=== PATIENT | female | born 1940 | race Caucasian/White ===

== ENCOUNTER → 2017-11-27 | Outpatient (CLI) | payer MEDICARE ==
[~2017-11-27] MED LIST: AMIL5TAB8 PO; CHOL100040 PO; CLON.1 PO; CLON1PAT4 TD; LISI40TA4 PO; LOVA10TA2 PO; METO-391 PO; OMEPRAZOLE DR PO; PIND10TA2 PO; PRAM0.258 PO
== END | disposition home or self-care (01) ==
LOC: SLP 20:05
PROVIDERS: ATTEND Internal Medicine Cardiovascular Disease
DX: G47.33 Obstructive sleep apnea (adult) (pediatric) (principal); I10 Essential (primary) hypertension
CPT/HCPCS: 95810

== ENCOUNTER 2018-02-05 17:19 | Inpatient (IN) | payer MEDICARE ==
[~2018-02-05] VITALS: Ht 152.4 cm; Wt 61.5 kg
[2018-02-05 18:15] VITALS: BP 196/95
[2018-02-05] MEDS ORDERED: OMEPRAZOLE DR PO (18:24)
[2018-02-05] MEDS ORDERED: LISI40TA4 PO (18:24)
[2018-02-05] MEDS ORDERED: CHOL100040 PO (18:24)
[2018-02-05] MEDS ORDERED: METO-391 PO (18:24)
[2018-02-05] MEDS ORDERED: PRAM0.258 PO (18:24)
[2018-02-05] MEDS ORDERED: LOVA10TA2 PO (18:24)
[2018-02-05 18:44] LABS: MEAN CORPUSCULAR HEMOGLOBIN 30.3 pg (27.0-33.0); MEAN CORPUSCULAR HGB CONC 34.8 g/dL (32.0-36.0); PLATELET COUNT (AUTO) 302 K/uL (130-400); RED BLOOD CELL COUNT(AUTO) 4.25 MIL/uL (4.00-5.50); RED CELL DISTRIBUTION WIDTH 12.5 % (11.0-15.5)
[2018-02-05 18:54] LABS: INR 0.97 (0.85-1.15); PARTIAL THROMBOPLASTIN TIME 24.7 SEC (26.3-35.5); PROTHROMBIN TIME 10.2 SEC (9.6-11.6)
[2018-02-05 19:09] LABS: ALBUMIN 3.8 g/dL (3.5-5.0); BILIRUBIN,TOTAL 0.3 mg/dL (0.2-1.0); CREATININE 1.3 mg/dL (0.5-1.5); POTASSIUM 4.1 mmol/L (3.5-5.1); TOTAL PROTEIN, SERUM 7.2 g/dL (6.0-8.3)
[2018-02-05 19:29] VITALS: BP 131/74
[2018-02-05] MEDS ORDERED: ACETAMINOPHEN 325 MG TAB PO PRN (21:15)
[2018-02-05] MEDS ORDERED: ZOLPIDEM TARTRATE 5 MG TAB PO PRN (21:15)
[2018-02-05] MEDS ORDERED: NITROGLYCERIN 0.4 MG SL TAB SL PRN (21:15)
[2018-02-05] MEDS ORDERED: POTASSIUM CHLORIDE 20 MEQ ERTAB PO PRN (21:15)
[2018-02-05] MEDS ORDERED: POTASSIUM CHLORIDE 20MEQ/100ML 100 ML IV PRN (21:15)
[2018-02-05] MEDS ORDERED: LIDOCAINE HCL-MPF 1% 2ML VIAL IVP PRN (21:15)
[2018-02-05] MEDS ORDERED: SODIUM CHLORIDE 0.9% 10 ML VIAL IVP PRN (21:30)
[2018-02-05 22:00] VITALS: BP 210/100
[2018-02-05 23:49] VITALS: BP 190/100
[2018-02-06] VITALS (45 sets, daily range): BP systolic 67–245; BP diastolic 41–107
[2018-02-06] MEDS ORDERED: NICARDIPINE IN NACL, ISO-OSM 200 ML IV ONE ×2 (02:30→20:04)
[2018-02-06 02:54] LABS: APPEARANCE,URINE Clear (CLEAR); BILIRUBIN,URINE Negative (NEGATIVE); COLOR,URINE Yellow (YELLOW); GLUCOSE, URINE (UA) Negative (NEGATIVE); KETONES,URINE Negative (NEGATIVE); LEUKOCYTE ESTERASE ,URINE Moderate (NEGATIVE); NITRATE,URINE Negative (NEGATIVE); OCCULT BLOOD,URINE Negative (NEGATIVE); PROTEIN,URINE Negative (NEGATIVE); UROBILINOGEN,URINE 0.2 mg/dL (0.2-1.0)
[2018-02-06 03:17] LABS: BACTERIA,URINE Rare /HPF (None Seen); RBC,URINE 0-1 /HPF (0-1); SQUAMOUS EPITHELIAL CELL,UR 0-2 /HPF (0-2)
[2018-02-06 04:50] LABS: MEAN CORPUSCULAR HEMOGLOBIN 31.7 pg (27.0-33.0); MEAN CORPUSCULAR HGB CONC 35.8 g/dL (32.0-36.0); MEAN CORPUSCULAR VOLUME 88.3 fL (79-99); PLATELET COUNT (AUTO) 280 K/uL (130-400); RED CELL DISTRIBUTION WIDTH 12.7 % (11.0-15.5); WHITE BLOOD COUNT (AUTO) 6.5 K/uL (4.8-10.8)
[2018-02-06 05:13] LABS: POTASSIUM 3.4 mmol/L (3.5-5.1); THYROID STIMULATING HORMONE 2.5 uIU/mL (0.36-3.74)
[2018-02-06] MEDS ORDERED: CEFTRIAXONE 1GM/D5W 50ML 50 ML IV SCH (06:45)
[2018-02-06] MEDS ORDERED: CEFTRIAXONE SODIUM 1 GM IVP SCH ×2 (07:00→11:30)
[2018-02-06] MEDS: VITAMIN D3 1000 UNIT PO SCH (12:52)
[2018-02-06] MEDS: PRAMIPEXOLE DI-HCL 0.25 MG TABLET PO SCH ×2 (12:52→21:50)
[2018-02-06] MEDS: FAMOTIDINE 20MG TAB 20 MG TAB PO SCH (12:54)
[2018-02-06] MEDS: LOVASTATIN 10 MG PO SCH (12:54)
[2018-02-06] MEDS ORDERED: SODIUM CHLORIDE 0.9% 1000ML 1,000 ML IV ONE (13:11)
[2018-02-06] MEDS: LISINOPRIL 40 MG TABLET PO SCH (16:13)
[2018-02-06] MEDS ORDERED: PRAMIPEXOLE DI-HCL 0.25 MG TABLET PO SCH (21:00)
[2018-02-07] VITALS (24 sets, daily range): BP systolic 109–184; BP diastolic 63–102
[2018-02-07 04:03] LABS: CREATININE 0.9 mg/dL (0.5-1.5); POTASSIUM 3.8 mmol/L (3.5-5.1)
[2018-02-07] MEDS ORDERED: NICARDIPINE IN NACL, ISO-OSM 200 ML IV ONE ×2 (06:58→22:27)
[2018-02-07] MEDS: VITAMIN D3 1000 UNIT PO SCH (08:31)
[2018-02-07] MEDS: LOVASTATIN 10 MG PO SCH (08:32)
[2018-02-07] MEDS: PRAMIPEXOLE DI-HCL 0.25 MG TABLET PO SCH ×3 (08:32→18:34)
[2018-02-07] MEDS: LISINOPRIL 40 MG TABLET PO SCH (08:33)
[2018-02-07] MEDS: CEFTRIAXONE SODIUM 1 GM IVP SCH (08:33)
[2018-02-07] MEDS: FAMOTIDINE 20MG TAB 20 MG TAB PO SCH (08:33)
[2018-02-07] MEDS: ENOXAPARIN SODIUM 40 MG/0.4 ML SYRINGE SQ SCH (08:35)
[2018-02-07] MEDS: ACETAMINOPHEN 325 MG TAB PO PRN (22:30)
[2018-02-07] MEDS: NICARDIPINE HCL 100 MG in SODIUM CHLORIDE 0.9% 60 ML IV SCH (22:35)
[2018-02-08] VITALS (27 sets, daily range): BP systolic 110–208; BP diastolic 53–98
[2018-02-08 03:49] LABS: INR 0.96 (0.85-1.15); PROTHROMBIN TIME 10.1 SEC (9.6-11.6)
[2018-02-08 03:51] LABS: CREATININE 0.8 mg/dL (0.5-1.5); POTASSIUM 3.5 mmol/L (3.5-5.1)
[2018-02-08] MEDS: PRAMIPEXOLE DI-HCL 0.25 MG TABLET PO SCH ×3 (08:04→21:02)
[2018-02-08] MEDS: LISINOPRIL 40 MG TABLET PO SCH (08:04)
[2018-02-08] MEDS: FAMOTIDINE 20MG TAB 20 MG TAB PO SCH (08:04)
[2018-02-08] MEDS: CEFTRIAXONE SODIUM 1 GM IVP SCH (08:05)
[2018-02-08] MEDS: VITAMIN D3 1000 UNIT PO SCH (08:07)
[2018-02-08] MEDS: ENOXAPARIN SODIUM 40 MG/0.4 ML SYRINGE SQ SCH (08:07)
[2018-02-08] MEDS: LOVASTATIN 10 MG PO SCH (08:08)
[2018-02-08] MEDS: POTASSIUM CHLORIDE 10% ELIXIR 20 MEQ/15 ML UDCUP PO PRN ×2 (08:18→13:11)
[2018-02-08] MEDS ORDERED: NICARDIPINE IN NACL, ISO-OSM 200 ML IV ONE (15:37)
[2018-02-08] MEDS: ACETAMINOPHEN 325 MG TAB PO PRN (21:03)
[2018-02-08] MEDS: ONDANSETRON HCL MDV 20ML 2 MG/ML VIAL IV PRN (22:26)
[2018-02-09] VITALS (24 sets, daily range): BP systolic 125–206; BP diastolic 62–103
[2018-02-09] MEDS ORDERED: NICARDIPINE IN NACL, ISO-OSM 200 ML IV ONE ×2 (00:31→23:03)
[2018-02-09] MEDS: NICARDIPINE HCL 100 MG in SODIUM CHLORIDE 0.9% 60 ML IV SCH (00:34)
[2018-02-09 04:31] LABS: HEMATOCRIT 38.1 % (36-48); MEAN CORPUSCULAR HEMOGLOBIN 30.5 pg (27.0-33.0); MEAN CORPUSCULAR HGB CONC 34.4 g/dL (32.0-36.0); MEAN CORPUSCULAR VOLUME 88.7 fL (79-99); PLATELET COUNT (AUTO) 264 K/uL (130-400); RED BLOOD CELL COUNT(AUTO) 4.29 MIL/uL (4.00-5.50); RED CELL DISTRIBUTION WIDTH 12.9 % (11.0-15.5)
[2018-02-09 05:01] LABS: CREATININE 0.9 mg/dL (0.5-1.5); POTASSIUM 4.1 mmol/L (3.5-5.1)
[2018-02-09] MEDS: CEFTRIAXONE SODIUM 1 GM IVP SCH (08:55)
[2018-02-09] MEDS: ENOXAPARIN SODIUM 40 MG/0.4 ML SYRINGE SQ SCH (09:00)
[2018-02-09] MEDS ORDERED: ISOVUE-300 100 ML VIAL IV ONE (09:50)
[2018-02-09] MEDS ORDERED: LIDOCAINE HCL-MPF 2% 5ML VIAL ONE (09:50)
[2018-02-09] MEDS ORDERED: NITROGLYCERIN 5 MG/ML 10 ML VIAL IV ONE (09:57)
[2018-02-09] MEDS ORDERED: HEPARIN SODIUM 1000UNIT/ML 10ML VIAL ONE (11:02)
[2018-02-09] MEDS ORDERED: SODIUM CHLORIDE 0.9% 1000ML 1,000 ML IV SCH (11:18)
[2018-02-09] MEDS: LISINOPRIL 40 MG TABLET PO SCH (11:47)
[2018-02-09] MEDS: PRAMIPEXOLE DI-HCL 0.25 MG TABLET PO SCH ×3 (11:47→20:02)
[2018-02-09] MEDS: FAMOTIDINE 20MG TAB 20 MG TAB PO SCH (11:48)
[2018-02-09] MEDS: LOVASTATIN 10 MG PO SCH (11:49)
[2018-02-09] MEDS: VITAMIN D3 1000 UNIT PO SCH (11:50)
[2018-02-09] MEDS: LABETALOL HCL 100 MG TABLET PO SCH ×2 (15:21→20:01)
[2018-02-10] VITALS (23 sets, daily range): BP systolic 78–170; BP diastolic 41–83
[2018-02-10 04:24] LABS: HEMATOCRIT 35.4 % (36-48); MEAN CORPUSCULAR HEMOGLOBIN 30.6 pg (27.0-33.0); MEAN CORPUSCULAR HGB CONC 34.7 g/dL (32.0-36.0); MEAN CORPUSCULAR VOLUME 88.3 fL (79-99); PLATELET COUNT (AUTO) 256 K/uL (130-400); RED CELL DISTRIBUTION WIDTH 12.8 % (11.0-15.5); WHITE BLOOD COUNT (AUTO) 8.3 K/uL (4.8-10.8)
[2018-02-10 04:35] LABS: CREATININE 0.9 mg/dL (0.5-1.5); POTASSIUM 4.2 mmol/L (3.5-5.1)
[2018-02-10] MEDS ORDERED: AMLODIPINE BESYLATE 5 MG TAB PO SCH (09:00)
[2018-02-10] MEDS ORDERED: METOPROLOL TARTRATE 25 MG TAB PO SCH (09:00)
[2018-02-10] MEDS: CEFTRIAXONE SODIUM 1 GM IVP SCH (09:11)
[2018-02-10] MEDS: VITAMIN D3 1000 UNIT PO SCH (09:13)
[2018-02-10] MEDS: FAMOTIDINE 20MG TAB 20 MG TAB PO SCH (09:13)
[2018-02-10] MEDS: PRAMIPEXOLE DI-HCL 0.25 MG TABLET PO SCH ×3 (09:14→17:39)
[2018-02-10] MEDS: ENOXAPARIN SODIUM 40 MG/0.4 ML SYRINGE SQ SCH (09:15)
[2018-02-10] MEDS ORDERED: PRAM0.258 PO (14:54)
[2018-02-10] MEDS ORDERED: PRAMIPEXOLE DI-HCL 0.25 MG TABLET PO SCH (17:00)
[2018-02-10] MEDS: PINDOLOL 5 MG TAB PO SCH (17:39)
[2018-02-10] MEDS: LISINOPRIL 20 MG TABLET PO SCH (17:39)
[2018-02-10] MEDS: **HM** LOVASTATIN 10MG PO SCH (17:40)
[2018-02-10] MEDS: ONDANSETRON HCL MDV 20ML 2 MG/ML VIAL IV PRN (20:04)
[2018-02-10] MEDS ORDERED: PINDOLOL 5 MG TAB PO SCH (21:00)
[2018-02-10] MEDS ORDERED: LISINOPRIL 20 MG TABLET PO SCH (21:00)
[2018-02-11] VITALS (8 sets, daily range): BP systolic 125–202; BP diastolic 58–110
[2018-02-11] MEDS: LISINOPRIL 20 MG TABLET PO SCH ×2 (05:00→17:04)
[2018-02-11] MEDS: PINDOLOL 5 MG TAB PO SCH ×2 (05:00→17:04)
[2018-02-11] MEDS: VITAMIN D3 1000 UNIT PO SCH (09:00)
[2018-02-11] MEDS: FAMOTIDINE 20MG TAB 20 MG TAB PO SCH (10:58)
[2018-02-11] MEDS: CEFTRIAXONE SODIUM 1 GM IVP SCH (10:58)
[2018-02-11] MEDS: ENOXAPARIN SODIUM 40 MG/0.4 ML SYRINGE SQ SCH (10:59)
[2018-02-11] MEDS: **HM** LOVASTATIN 10MG PO SCH (17:00)
[2018-02-11] MEDS: PRAMIPEXOLE DI-HCL 0.25 MG TABLET PO SCH (17:04)
[2018-02-12] VITALS (8 sets, daily range): BP systolic 93–187; BP diastolic 48–95
[2018-02-12] MEDS: LISINOPRIL 20 MG TABLET PO SCH ×2 (05:10→17:04)
[2018-02-12] MEDS ORDERED: PINDOLOL 5 MG TAB PO SCH ×3 (06:00→21:00)
[2018-02-12] MEDS: FAMOTIDINE 20MG TAB 20 MG TAB PO SCH (08:15)
[2018-02-12] MEDS: ENOXAPARIN SODIUM 40 MG/0.4 ML SYRINGE SQ SCH (08:19)
[2018-02-12] MEDS: VITAMIN D3 1000 UNIT PO SCH (08:23)
[2018-02-12] MEDS ORDERED: CLONIDINE HCL 0.1 MG TABLET PO SCH (12:00)
[2018-02-12] MEDS ORDERED: PHARMACY COMMUNICATION MISC SCH (14:15)
[2018-02-12] MEDS: PINDOLOL 5 MG TAB PO SCH (17:05)
[2018-02-12] MEDS: **HM** LOVASTATIN 10MG PO SCH (17:07)
[2018-02-12] MEDS: PRAMIPEXOLE DI-HCL 0.25 MG TABLET PO SCH (17:07)
[2018-02-13 03:25] VITALS: BP 148/82
[2018-02-13] MEDS ORDERED: CLONIDINE HCL 0.1 MG TABLET PO SCH ×2 (06:00→09:00)
[2018-02-13] MEDS: PINDOLOL 5 MG TAB PO SCH ×2 (06:10→17:03)
[2018-02-13] MEDS: LISINOPRIL 20 MG TABLET PO SCH ×2 (06:10→17:04)
[2018-02-13 07:00] VITALS: BP 109/63
[2018-02-13] MEDS: ENOXAPARIN SODIUM 40 MG/0.4 ML SYRINGE SQ SCH (07:51)
[2018-02-13] MEDS: FAMOTIDINE 20MG TAB 20 MG TAB PO SCH (07:51)
[2018-02-13] MEDS: VITAMIN D3 1000 UNIT PO SCH (07:52)
[2018-02-13 11:00] VITALS: BP 121/55
[2018-02-13 16:00] VITALS: BP 162/77
[2018-02-13] MEDS: PRAMIPEXOLE DI-HCL 0.25 MG TABLET PO SCH (17:03)
[2018-02-13] MEDS: **HM** LOVASTATIN 10MG PO SCH (17:06)
[2018-02-13 19:49] VITALS: BP 184/79
[2018-02-13] MEDS ORDERED: CLONIDINE 0.1 MG/ 24 HR PATCH TD SCH (21:00)
[2018-02-13 23:19] VITALS: BP 141/93
[2018-02-14] VITALS (10 sets, daily range): BP systolic 90–214; BP diastolic 54–116
[2018-02-14] MEDS: PINDOLOL 5 MG TAB PO SCH ×3 (06:13→17:10)
[2018-02-14] MEDS: LISINOPRIL 20 MG TABLET PO SCH ×2 (06:14→17:10)
[2018-02-14] MEDS: ENOXAPARIN SODIUM 40 MG/0.4 ML SYRINGE SQ SCH (07:45)
[2018-02-14] MEDS: FAMOTIDINE 20MG TAB 20 MG TAB PO SCH (07:45)
[2018-02-14] MEDS: VITAMIN D3 1000 UNIT PO SCH (07:48)
[2018-02-14] MEDS ORDERED: CLONIDINE 0.2 MG/ 24 HR PATCH TD SCH (08:30)
[2018-02-14] MEDS ORDERED: PINDOLOL 5 MG TAB PO SCH (09:45)
[2018-02-14] MEDS: AMILORIDE HCL 5 MG TABLET PO SCH (09:55)
[2018-02-14] MEDS: ACETAMINOPHEN 325 MG TAB PO PRN (14:09)
[2018-02-14] MEDS: **HM** LOVASTATIN 10MG PO SCH (17:11)
[2018-02-14] MEDS: PRAMIPEXOLE DI-HCL 0.25 MG TABLET PO SCH (17:11)
[2018-02-15] VITALS (7 sets, daily range): BP systolic 106–217; BP diastolic 50–106
[2018-02-15 04:58] LABS: POTASSIUM 4.3 mmol/L (3.5-5.1)
[2018-02-15] MEDS: PINDOLOL 5 MG TAB PO SCH ×2 (06:00→17:29)
[2018-02-15] MEDS: LISINOPRIL 20 MG TABLET PO SCH ×2 (06:00→17:30)
[2018-02-15] MEDS: AMILORIDE HCL 5 MG TABLET PO SCH (09:42)
[2018-02-15] MEDS: ENOXAPARIN SODIUM 40 MG/0.4 ML SYRINGE SQ SCH (09:43)
[2018-02-15] MEDS: FAMOTIDINE 20MG TAB 20 MG TAB PO SCH (09:43)
[2018-02-15] MEDS: VITAMIN D3 1000 UNIT PO SCH (09:44)
[2018-02-15] MEDS: ACETAMINOPHEN 325 MG TAB PO PRN (09:57)
[2018-02-15] MEDS: **HM** LOVASTATIN 10MG PO SCH (17:00)
[2018-02-15] MEDS: PRAMIPEXOLE DI-HCL 0.25 MG TABLET PO SCH (17:29)
[2018-02-16 03:21] VITALS: BP 185/70
[2018-02-16] MEDS: PINDOLOL 5 MG TAB PO SCH ×2 (05:46→17:01)
[2018-02-16] MEDS: LISINOPRIL 20 MG TABLET PO SCH ×2 (05:47→16:19)
[2018-02-16 08:00] VITALS: BP 154/110
[2018-02-16] MEDS: AMILORIDE HCL 5 MG TABLET PO SCH (09:31)
[2018-02-16] MEDS: FAMOTIDINE 20MG TAB 20 MG TAB PO SCH (09:31)
[2018-02-16] MEDS: ENOXAPARIN SODIUM 40 MG/0.4 ML SYRINGE SQ SCH (09:31)
[2018-02-16] MEDS: VITAMIN D3 1000 UNIT PO SCH (09:40)
[2018-02-16 11:50] VITALS: BP 96/53
[2018-02-16] MEDS ORDERED: CLONIDINE 0.2 MG/ 24 HR PATCH TD SCH (15:45)
[2018-02-16] MEDS: PRAMIPEXOLE DI-HCL 0.25 MG TABLET PO SCH (16:19)
[2018-02-16] MEDS: **HM** LOVASTATIN 10MG PO SCH (16:19)
[2018-02-16 16:21] VITALS: BP 123/61
[2018-02-16 19:21] VITALS: BP 164/86
[2018-02-16 23:23] VITALS: BP 198/91
[2018-02-16] MEDS ORDERED: HYDRALAZINE HCL 20 MG/ML VIAL IV PRN (23:45)
[2018-02-16] MEDS ORDERED: HYDRALAZINE HCL 20 MG/ML VIAL ONE (23:48)
[2018-02-17] VITALS (7 sets, daily range): BP systolic 121–149; BP diastolic 53–86
[2018-02-17] MEDS: ACETAMINOPHEN 325 MG TAB PO PRN ×2 (01:24→13:12)
[2018-02-17] MEDS: PINDOLOL 5 MG TAB PO SCH ×2 (05:57→18:46)
[2018-02-17] MEDS: LISINOPRIL 20 MG TABLET PO SCH ×2 (05:57→18:46)
[2018-02-17] MEDS: CLONIDINE HCL 0.1 MG TABLET PO SCH ×2 (10:22→19:32)
[2018-02-17] MEDS: FAMOTIDINE 20MG TAB 20 MG TAB PO SCH (10:22)
[2018-02-17] MEDS: AMILORIDE HCL 5 MG TABLET PO SCH (10:23)
[2018-02-17] MEDS: ENOXAPARIN SODIUM 40 MG/0.4 ML SYRINGE SQ SCH (10:23)
[2018-02-17] MEDS: VITAMIN D3 1000 UNIT PO SCH (10:23)
[2018-02-17] MEDS: **HM** LOVASTATIN 10MG PO SCH (18:49)
[2018-02-17] MEDS: ONDANSETRON HCL MDV 20ML 2 MG/ML VIAL IV PRN (19:31)
[2018-02-17] MEDS: PRAMIPEXOLE DI-HCL 0.25 MG TABLET PO SCH (19:32)
[2018-02-18 03:18] VITALS: BP 114/69
[2018-02-18] MEDS: PINDOLOL 5 MG TAB PO SCH (05:39)
[2018-02-18] MEDS: LISINOPRIL 20 MG TABLET PO SCH (05:39)
[2018-02-18 07:48] VITALS: BP 105/53
[2018-02-18] MEDS: FAMOTIDINE 20MG TAB 20 MG TAB PO SCH (07:56)
[2018-02-18] MEDS: CLONIDINE HCL 0.1 MG TABLET PO SCH (07:57)
[2018-02-18] MEDS: VITAMIN D3 1000 UNIT PO SCH (07:57)
[2018-02-18] MEDS: ENOXAPARIN SODIUM 40 MG/0.4 ML SYRINGE SQ SCH (07:59)
[2018-02-18] MEDS ORDERED: AMIL5TAB8 PO (08:49)
[2018-02-18] MEDS ORDERED: CLON1PAT4 TD (08:49)
[2018-02-18] MEDS ORDERED: CLON.1 PO (08:49)
[2018-02-18] MEDS ORDERED: LISI40TA4 PO (08:49)
[2018-02-18] MEDS ORDERED: PIND10TA2 PO (08:50)
[2018-02-18] MEDS: AMILORIDE HCL 5 MG TABLET PO SCH (08:58)
[2018-02-18 11:21] VITALS: BP 101/57
[2018-02-21] MEDS ORDERED: CLONIDINE 0.2 MG/ 24 HR PATCH TD SCH (17:00)
== END 2018-02-18 13:05 | disposition home or self-care (01) | DRG 690 ==
LOC: EDH 17:19 → 2DH 17:50 → 2BH 02-06 02:30 → 2CH 02-06 11:45 → 2AH 02-10 17:58
PROVIDERS: ADMIT Internal Medicine; ATTEND Internal Medicine
PROC: 5A09357 Assistance with Respiratory Ventilation, Less than 24 Consecutive Hours, Continuous Positive Airway Pressure (ICD-10-PCS; 2018-02-05)
PROC: 5A09357 Assistance with Respiratory Ventilation, Less than 24 Consecutive Hours, Continuous Positive Airway Pressure (ICD-10-PCS; 2018-02-08)
PROC: B4181ZZ Fluoroscopy of Bilateral Renal Arteries using Low Osmolar Contrast (ICD-10-PCS; principal; 2018-02-09)
PROC: 5A09357 Assistance with Respiratory Ventilation, Less than 24 Consecutive Hours, Continuous Positive Airway Pressure (ICD-10-PCS; 2018-02-09)
PROC: 5A09357 Assistance with Respiratory Ventilation, Less than 24 Consecutive Hours, Continuous Positive Airway Pressure (ICD-10-PCS; 2018-02-16)
PROC: 5A09357 Assistance with Respiratory Ventilation, Less than 24 Consecutive Hours, Continuous Positive Airway Pressure (ICD-10-PCS; 2018-02-17)
PROC: 5A09357 Assistance with Respiratory Ventilation, Less than 24 Consecutive Hours, Continuous Positive Airway Pressure (ICD-10-PCS; 2018-02-18)
DX: N39.0 Urinary tract infection, site not specified (principal); Z99.81 Dependence on supplemental oxygen; E87.1 Hypo-osmolality and hyponatremia; I10 Essential (primary) hypertension; E78.5 Hyperlipidemia, unspecified; G56.01 Carpal tunnel syndrome, right upper limb; G25.81 Restless legs syndrome; G47.33 Obstructive sleep apnea (adult) (pediatric); Z79.899 Other long term (current) drug therapy; Z85.41 Personal history of malignant neoplasm of cervix uteri; Z90.710 Acquired absence of both cervix and uterus
CPT/HCPCS: 36252; 36415; 71045; 76770; 80048; 80053; 81001; 84443; 85027; 85610; 85730; 93005; 93306; 93975; A4218; C1760; C1887; C1894; J0360; J0696; J1644; J1650; J3480; J3490; J7030; Q9967

== ENCOUNTER 2018-03-02 18:17 | Emergency (ER) | payer MEDICARE ==
[~2018-03-02 18:17] MED LIST changes: -METO-391 PO
[2018-03-02 18:51] LABS: BASOPHILS % (AUTO) 1.1 % (0.0-5.0); EOSINOPHILS % (AUTO) 9.1 % (0.0-8.0); HEMATOCRIT 38.5 % (36-48); MEAN CORPUSCULAR HEMOGLOBIN 29.7 pg (27.0-33.0); MEAN CORPUSCULAR HGB CONC 34.1 g/dL (32.0-36.0); MONOCYTES % (AUTO) 13.4 % (3.0-13.0); NEUTROPHILS % (AUTO) 59.4 % (40.0-77.0); PLATELET COUNT (AUTO) 262 K/uL (130-400); RED BLOOD CELL COUNT(AUTO) 4.42 MIL/uL (4.00-5.50); RED CELL DISTRIBUTION WIDTH 12.3 % (11.0-15.5); WHITE BLOOD COUNT (AUTO) 5.9 K/uL (4.8-10.8)
[2018-03-02 19:02] LABS: INR 0.95 (0.85-1.15)
[2018-03-02 19:03] LABS: CREATININE 1.2 mg/dL (0.5-1.5); POTASSIUM 4.8 mmol/L (3.5-5.1)
[2018-03-02 19:38] LABS: BILIRUBIN,TOTAL 0.2 mg/dL (0.2-1.0); CREATINE KINASE MB 1.6 ng/mL (0.5-3.6); TOTAL PROTEIN, SERUM 7.6 g/dL (6.0-8.3)
== END 2018-03-02 20:08 | disposition home or self-care (01) ==
LOC: EDH 18:17
DX: I10 Essential (primary) hypertension (principal); Z03.89 Encounter for observation for other suspected diseases and conditions ruled out; R79.1 Abnormal coagulation profile; G56.00 Carpal tunnel syndrome, unspecified upper limb; E78.5 Hyperlipidemia, unspecified; Z85.41 Personal history of malignant neoplasm of cervix uteri
CPT/HCPCS: 36415; 71045; 80053; 82553; 84484; 85025; 85610; 85730; 93005

== ENCOUNTER → 2022-11-22 | Outpatient (CLI) | payer MEDICARE ==
[~2022-11-22] MED LIST changes: -CLON.1 PO; +CLON0.1T2 PO; -LISI40TA4 PO; +LISI40TA9 PO
== END | disposition home or self-care (01) ==
LOC: LAB 13:59
PROVIDERS: ATTEND Internal Medicine Cardiovascular Disease
DX: I10 Essential (primary) hypertension (principal)
CPT/HCPCS: 36415; 83880

== ENCOUNTER → 2023-01-09 | Outpatient (CLI) | payer MEDICARE ==
[2023-01-09 13:12] LABS: POTASSIUM 4.7 mmol/L (3.5-5.1)
== END | disposition home or self-care (01) ==
LOC: LAB 10:01
PROVIDERS: ATTEND Internal Medicine Cardiovascular Disease
DX: I10 Essential (primary) hypertension (principal); I87.2 Venous insufficiency (chronic) (peripheral); I95.1 Orthostatic hypotension; R60.9 Edema, unspecified
CPT/HCPCS: 36415; 80048

== ENCOUNTER → 2023-02-03 | Outpatient (CLI) | payer MEDICARE ==
[2023-02-03 15:54] LABS: POTASSIUM 4.6 mmol/L (3.5-5.1)
== END | disposition home or self-care (01) ==
LOC: LAB 10:03
PROVIDERS: ATTEND Internal Medicine Cardiovascular Disease
DX: I95.1 Orthostatic hypotension (principal)
CPT/HCPCS: 36415; 80048

== ENCOUNTER → 2023-02-17 | Outpatient (CLI) | payer MEDICARE ==
[2023-02-17 14:04] LABS: POTASSIUM 4.7 mmol/L (3.5-5.1)
== END | disposition home or self-care (01) ==
LOC: LAB 10:08
PROVIDERS: ATTEND Internal Medicine Cardiovascular Disease
DX: E87.1 Hypo-osmolality and hyponatremia (principal)
CPT/HCPCS: 36415; 80048

== ENCOUNTER → 2023-03-08 | Outpatient (CLI) | payer MEDICARE | END | disposition home or self-care (01) | LOC: RAH 08:58 | PROVIDERS: ATTEND Nurse Practitioner | DX: M75.101 Unspecified rotator cuff tear or rupture of right shoulder, not specified as traumatic (principal); M75.01 Adhesive capsulitis of right shoulder; M19.011 Primary osteoarthritis, right shoulder; M25.411 Effusion, right shoulder | CPT/HCPCS: 73221 ==

== ENCOUNTER → 2023-03-21 | Outpatient (CLI) | payer MEDICARE ==
[2023-03-21 12:42] LABS: CREATININE 0.9 mg/dL (0.5-1.5); POTASSIUM 4.8 mmol/L (3.5-5.1)
== END | disposition home or self-care (01) ==
LOC: LAB 09:52
PROVIDERS: ATTEND Internal Medicine Cardiovascular Disease
DX: I95.1 Orthostatic hypotension (principal); E87.1 Hypo-osmolality and hyponatremia
CPT/HCPCS: 36415; 80048; 83880

== ENCOUNTER 2023-11-22 12:30 | Emergency (ER) | payer MEDICARE ==
[~2023-11-22] VITALS: Ht 152.4 cm; Wt 48.1 kg
[~2023-11-22 12:30] MED LIST changes: +AEC81 PO; -AMIL5TAB8 PO; +AMOX1TAB15 PO; -CHOL100040 PO; -CLON0.1T2 PO; -CLON1PAT4 TD; +FURO20TA4 PO; -LISI40TA9 PO; +METO-408 PO; +PRED20TA3 PO; +VALS80TA30 PO; +prevagen
[2023-11-22] MEDS ORDERED: ASPIRIN 325MG TAB PO ONE (14:30)
[2023-11-22 14:44] LABS: BASOPHILS # (AUTO) 0.02 K/uL (0.00-0.20); BASOPHILS % (AUTO) 0.2 % (0.0-5.0); EOSINOPHILS # (AUTO) 0.04 K/uL (0.00-0.70); EOSINOPHILS % (AUTO) 0.3 % (0.0-8.0); HEMATOCRIT 39.2 % (36-48); IMMATURE GRANULOCYTE ABSOLUTE 0.24 K/uL (0-1); LYMPHOCYTES # (AUTO) 0.7 K/uL (1.0-4.8); LYMPHOCYTES % (AUTO) 6.4 % (21.0-51.0); MEAN CORPUSCULAR HEMOGLOBIN 25.1 pg (27.0-33.0); MEAN CORPUSCULAR HGB CONC 30.4 g/dL (32.0-36.0); MEAN CORPUSCULAR VOLUME 82.5 fL (79-99); MONOCYTES # (AUTO) 0.4 K/uL (0.1-1.0); MONOCYTES % (AUTO) 3.1 % (3.0-13.0); NEUTROPHILS # (AUTO) 10.3 K/uL (1.8-7.7); NEUTROPHILS % (AUTO) 87.9 % (40.0-77.0); PLATELET COUNT (AUTO) 490 K/uL (130-400); RED BLOOD CELL COUNT(AUTO) 4.75 MIL/uL (4.00-5.50); WHITE BLOOD COUNT (AUTO) 11.7 K/uL (4.8-10.8)
[2023-11-22 14:53] LABS: CREATININE 1.3 mg/dL (0.5-1.5); POTASSIUM 5.3 mmol/L (3.5-5.1)
[2023-11-22 14:57] LABS: ALBUMIN 3.3 g/dL (3.5-5.0); BILIRUBIN,TOTAL 0.5 mg/dL (0.2-1.0); TOTAL PROTEIN, SERUM 7.4 g/dL (6.0-8.3)
[2023-11-22] MEDS ORDERED: IOHEXOL-350 75 ML VIAL IV ONE ×2 (15:03→15:22)
[2023-11-22] MEDS ORDERED: LACTATED RINGERS 1000ML 1,000 ML IV ONE (16:30)
[2023-11-22 19:08] LABS: ADD UA MICROSCOPIC YES; APPEARANCE,URINE CLEAR (CLEAR); BILIRUBIN,URINE NEGATIVE (NEGATIVE); COLOR,URINE LIGHT-YELLOW (YELLOW); GLUCOSE, URINE (UA) NEGATIVE (NEGATIVE); KETONES,URINE NEGATIVE (NEGATIVE); LEUKOCYTE ESTERASE ,URINE NEGATIVE Leu/uL (NEGATIVE); NITRATE,URINE NEGATIVE (NEGATIVE); OCCULT BLOOD,URINE NEGATIVE (NEGATIVE); PH,URINE 7.5 (5.0-8.0); PROTEIN,URINE NEGATIVE (NEGATIVE); UROBILINOGEN,URINE 0.2 mg/dL (0.2-1.0)
[2023-11-22 19:15] LABS: AMPHET/METH SCREEN,URINE NEGATIVE (NEGATIVE); BARBITURATE SCREEN, URINE NEGATIVE (NEGATIVE); BENZODIAZEPINES SCREEN,URINE NEGATIVE (NEGATIVE); CANNABINOID SCREEN,URINE NEGATIVE (NEGATIVE); COCAINE SCREEN,URINE NEGATIVE (NEGATIVE); OPIATE SCREEN,URINE NEGATIVE (NEGATIVE); PHENCYCLIDINE SCREEN,URINE NEGATIVE (NEGATIVE)
[2023-11-22 19:18] LABS: BACTERIA,URINE RARE /HPF (None Seen); MUCUS,URINE RARE LPF (None Seen); SQUAMOUS EPITHELIAL CELL,UR RARE /HPF (0-2); WBC,URINE 0-1 /HPF (0-1)
[2023-11-22 21:27] VITALS: BP 108/56; PULSE 69; RESP 16; O2SAT 96
== END 2023-11-22 21:27 | disposition short-term general hospital (02) ==
LOC: EDH 12:30
DX: R47.81 Slurred speech (principal); R41.82 Altered mental status, unspecified; J44.9 Chronic obstructive pulmonary disease, unspecified; E78.00 Pure hypercholesterolemia, unspecified; I11.0 Hypertensive heart disease with heart failure; I50.9 Heart failure, unspecified; K21.9 Gastro-esophageal reflux disease without esophagitis; Z79.52 Long term (current) use of systemic steroids; Z79.82 Long term (current) use of aspirin; Z79.899 Other long term (current) drug therapy; Z90.49 Acquired absence of other specified parts of digestive tract
CPT/HCPCS: 99285; 70450; 96360; 84484; 80053; 80305; 85025; 82948; 81001; 36415; 70496; 70498; 93005; J7120; Q9967 ×2

== ENCOUNTER → 2024-12-09 | Outpatient (CLI) | payer MEDICARE ==
[~2024-12-09] MED LIST changes: -AMOX1TAB15 PO; +OSEL75 PO; -PRAM0.258 PO; +PRAM1TAB7 PO; -PRED20TA3 PO
--- NOTE | 2024-12-09 14:25 | HMCIMG ---
CT UPPER EXT W/O CONTRAST HISTORY: Primary osteoarthritis COMPARISON: None TECHNIQUE: Multiple sequential axial images of the right shoulder were obtained including post processing sagittal and coronal reconstruction images. Patient was not given contrast through intravenous route. FINDINGS: There is superior subluxation of right shoulder. Hill-Sachs deformity is seen. There are findings suspicious for rotator cuff tendon tear. Irregularity is seen involving the medial portion of the right humeral head and superior aspect of the bony glenoid suggestive of chronic dislocation with degenerative changes. No acute displaced fracture is seen. IMPRESSION: 1. Superior subluxation of right shoulder with Hill-Sachs deformity. Bony irregularity is seen involving the medial portion of the right humeral head and superior portion of the bony glenoid at the articular surface. CT was performed with one or more following dose reduction techniques: automated exposure control, adjustment of the mA and kv according to patient's size, or use of a iterative reconstruction technique.
== END | disposition home or self-care (01) ==
LOC: RAH 13:36
PROVIDERS: ATTEND Student in an Organized Health Care Education/Training Program
DX: S43.001A Unspecified subluxation of right shoulder joint, initial encounter (principal); S42.291A Other displaced fracture of upper end of right humerus, initial encounter for closed fracture; M19.011 Primary osteoarthritis, right shoulder; X58.XXXA Exposure to other specified factors, initial encounter; Y93.89 Activity, other specified; Y92.89 Other specified places as the place of occurrence of the external cause; Y99.8 Other external cause status
CPT/HCPCS: 73200

== ENCOUNTER 2025-01-20 05:44 | Observation (INO) | payer MEDICARE ==
[2025-01-14 15:14] LABS: BASOPHILS # (AUTO) 0.09 K/uL (0.00-0.20); EOSINOPHILS # (AUTO) 0.55 K/uL (0.00-0.70); EOSINOPHILS % (AUTO) 6.1 % (0.0-8.0); HEMATOCRIT 31.9 % (36-48); IMMATURE GRANULOCYTE ABSOLUTE 0.07 K/uL (0-1); LYMPHOCYTES # (AUTO) 1.5 K/uL (1.0-4.8); LYMPHOCYTES % (AUTO) 16.3 % (21.0-51.0); MEAN CORPUSCULAR HEMOGLOBIN 29.9 pg (27.0-33.0); MEAN CORPUSCULAR VOLUME 93.5 fL (79-99); MONOCYTES # (AUTO) 0.8 K/uL (0.1-1.0); MONOCYTES % (AUTO) 8.7 % (3.0-13.0); NEUTROPHILS % (AUTO) 67.1 % (40.0-77.0); PLATELET COUNT (AUTO) 337 K/uL (130-400); RED BLOOD CELL COUNT(AUTO) 3.41 MIL/uL (4.00-5.50); RED CELL DISTRIBUTION WIDTH 14.6 % (11.0-15.5)
[2025-01-14 15:22] LABS: INR 1.02 (0.85-1.15); PROTHROMBIN TIME 10.8 SEC (9.6-11.6)
[2025-01-14 15:24] LABS: ALBUMIN 3.6 g/dL (3.5-5.0); CREATININE 1.7 mg/dL (0.5-1.0); PARTIAL THROMBOPLASTIN TIME 27.6 SEC (26.3-35.5); POTASSIUM 5.2 mmol/L (3.5-5.1)
[2025-01-14 15:51] VITALS: BP 158/76; PULSE 101; RESP 13; TEMP 97.6
--- NOTE | 2025-01-17 16:32 | NUR ---
RE: LABS REPORTED CBC RESULTS TO DR EMDINA. RECEIVED ORDERS FOR T&C 2 UNITS PRBCS ON DOS.
--- NOTE | 2025-01-17 17:00 | NUR ---
RE: LABS REPORTED BMP RESULTS TO DR DE LEON, NO NEW ORDERS RECEIVED.
[2025-01-20] VITALS (38 sets, daily range): BP systolic 95–219; BP diastolic 52–104; PULSE 68–107; RESP 13–20; TEMP 97.2–98.6; O2SAT 95–98
[~2025-01-20] VITALS: Ht 144.8 cm; Wt 54.2 kg
[~2025-01-20 05:44] MED LIST changes: -AEC81 PO; +ASPI-1443 PO; +CALC-1249 PO; +CYAN50009 PO; -METO-408 PO; +MULT-660 PO; +OLMESARTAN PO; +OMEP-420 PO; -OMEPRAZOLE DR PO; -OSEL75 PO; -PIND10TA2 PO; -VALS80TA30 PO; -prevagen
[2025-01-20 06:33] LABS: CREATININE 1.5 mg/dL (0.5-1.0); POTASSIUM 4.4 mmol/L (3.5-5.1)
[2025-01-20] MEDS ORDERED: MIDAZOLAM HCL 1 MG/ML 2ML VIAL ONE (07:09)
[2025-01-20] MEDS ORDERED: proPOFol 10 MG/ML 20ML VIAL IV ONE (07:09)
[2025-01-20] MEDS ORDERED: ondanSETRON 4MG INJ ONE ×2 (07:09→09:35)
[2025-01-20] MEDS ORDERED: FENTanyl CITRate PF 50 MCG/1 ML 2ML VIAL ONE ×2 (07:10→10:00)
[2025-01-20] MEDS ORDERED: rocuRONium bROMide 10MG/1ML 5ML VL ONE (07:10)
[2025-01-20] MEDS ORDERED: ROPivacaine 0.5% 5MG/ML 30ML ONE ×2 (07:22→10:48)
[2025-01-20] MEDS ORDERED: phenylEPHRINE HCL 10 MG/ML 1ML VIAL IV ONE (07:23)
[2025-01-20] MEDS: 0.9%NACL 1000ML 1,000 ML IV SCH (07:30)
[2025-01-20] MEDS ORDERED: ondanSETRON 4MG INJ IVP PRN (07:30)
[2025-01-20] MEDS ORDERED: ketOROlac 15MG/ML VIAL (15MG/ML) IV SCH (07:30)
[2025-01-20] MEDS ORDERED: PoTASSium chl 10% ELIXIR 20MEQ 20 MEQ/15 ML UDCUP PO PRN (07:30)
[2025-01-20] MEDS ORDERED: PoTASSium chloRIDE 20MEQ ER 20 MEQ ERTAB PO PRN (07:30)
[2025-01-20] MEDS ORDERED: FE FUMARATE/FA/MV, MIN COMB#15 1 TAB PO PRN (07:30)
[2025-01-20] MEDS ORDERED: CALCIUM CARB 500MG PO PRN (07:30)
[2025-01-20] MEDS ORDERED: PoTASSium chloRIDE 20MEQ/100ML 100 ML IV PRN (07:30)
[2025-01-20] MEDS ORDERED: HYDROcodone/APAP 5/325 1 TAB TABLET PO PRN (07:30)
[2025-01-20] MEDS ORDERED: dexaMETHasone SOD PHOSPHATE 10MG/ML 1ML VIAL ONE (07:40)
[2025-01-20] MEDS: ceFAZolin SODIUM 2 GM VIAL ONE (07:50)
[2025-01-20] MEDS: LACTATED RINGERS 1000ML 1,000 ML IV ONE (07:55)
[2025-01-20] MEDS: TRANEXAMIC ACID 1000MG/10ML ONE (08:00)
--- NOTE | 2025-01-20 08:19 | EKG ---
Formerly [facility] Test Date: 2025-01-20 Test Time: 06:57:40 Pat Name: MARCIANO ZHENG Department: [facility] Room: 422 Gender: F Auto Tech: [id number] : 1940 Requested By: MAYCOL CASTILLO Order Number: [id number] Reading MD: Pierre Mondragon Measurements Intervals [place] Rate: 102 P: 66 KS: 143 QRS: 8 QRSD: 79 T: 69 QT: 336 QTc: 440 Interpretive Statements Sinus tachycardia Left atrial enlargement Compared to ECG 02/07/2024 07:04:31 Sinus rhythm no longer present Electronically Signed On 01-20-2025 18:56:15 [employer] by Pierre Mondragon Please click the below link to view image of tracing.
[2025-01-20] MEDS: MULTIVITAMIN TABLET PO SCH (09:00)
[2025-01-20] MEDS: doCUSate SODIUM 100 MG CAP PO SCH (09:00)
[2025-01-20] MEDS: PANTOPrazole 40 MG TAB DR PO SCH (09:00)
[2025-01-20] MEDS: CYANOCOBALAMIN (VITAMIN B-12) 1,000 MCG TABLET PO SCH (09:00)
[2025-01-20] MEDS: VITAMIN D3 PO SCH (09:00)
[2025-01-20] MEDS: CALCIUM CARBONATE PO SCH (09:00)
[2025-01-20] MEDS: OLMESARTAN 5 MG PO SCH (09:00)
[2025-01-20] MEDS: furoSEMIDE 20 MG TABLET PO SCH (09:00)
[2025-01-20] MEDS: polyETHYLene GLYCol 3350 17 GM POWD.PACK PO SCH (09:00)
[2025-01-20] MEDS: PRAMIpexole DI-HCL 0.25 MG TABLET PO SCH (09:00)
[2025-01-20] MEDS ORDERED: NEOSTIGMINE METHYLSULFATE 1MG/ML IV ONE (09:58)
[2025-01-20] MEDS: LAbetaLOL 20MG SYG IV ONE (10:47)
[2025-01-20] MEDS ORDERED: LIDOCAINE 2%-EPI 1:200,000 20 ML VIAL IJ ONE (10:48)
[2025-01-20] MEDS: hydrALAZine 20MG/ML VIAL ONE (10:55)
[2025-01-20] MEDS: morPHINE 2 MG SYG ONE (11:05)
[2025-01-20] MEDS: CYCLOBENZAPRINE HCL 10 MG TABLET PO PRN (11:15)
[2025-01-20] MEDS: GABApentin 100 MG CAPSULE ONE (11:15)
[2025-01-20] MEDS: hydroMORPHone 1 MG INJ ONE (11:30)
[2025-01-20] MEDS: CYCLOBENZAPRINE HCL 10 MG TABLET ONE (11:39)
--- NOTE | 2025-01-20 12:00 | NUR ---
REPORT RECEIVED FROM RADHA DOWNS. PATIENT INTO ROOM 422, ACCOMPANIED BY FAMILY. PATIENT IS A LITTLE DROWSY BUT A&OX3. PIV TO LEFT FA, CONNECTED IV FLUIDS. PATIENT HAS SLING APPLIED TO RIGHT SHOULDER. PATIENT STATES SHE IS COMFORTABLE AT THE MOMENT, PATIENT CONNECTED TO SCDS, HOME MEDS HAVE BEEN RESTARTED, BED LOCKED AND AT LOWEST POSITION. RT CALLED FOR EDUCATION ON IS. PLAN OF CARE ON GOING.
--- NOTE | 2025-01-20 12:30 | HMCIMG ---
SHOULDER LTD 1VW RT REASON: S/P SHOULDER SURGERY. COMPARISON: None TECHNIQUE: Frontal projection of the right shoulder was obtained. FINDINGS: Right shoulder arthroplasty changes are seen. Postop changes are seen with soft tissue swelling is seen. Please see procedure report by referring physician. Alignment appears be grossly adequate. IMPRESSION: Findings as described above.
--- NOTE | 2025-01-20 12:31 | HMCIMG ---
SHOULDER COMP 2+VWS RT HISTORY: Right shoulder hemiarthroplasty COMPARISON: None TECHNIQUE: Postop images of right shoulder were obtained by referring physician. FINDINGS: Please see procedure report by referring physician. IMPRESSION: 1. Findings as described above.
--- NOTE | 2025-01-20 12:35 | OP ---
Operative Note: DATE OF PROCEDURE: 01/20/25 SURGEON: DIANNE MEDINA MD BOOKIE: Rhett Manzanares ANESTHESIA: General and interscalene block ANESTHESIOLOGIST/SANDER OPERATOR: TEMITOPE Ingram PREOPERATIVE DIAGNOSIS: Right cuff tear arthropathy POSTOPERATIVE DIAGNOSIS: Right cuff tear arthropathy PROCEDURE: Right shoulder hemiarthroplasty ESTIMATED BLOOD LOSS: 150 cc COMPLICATIONS: None DRAINS: None SPECIMENS: resected bone from the humeral head not sent to pathology IMPLANTS: [employer] size 32/10/120 FX V135 humeral stem with locking screw, eccentric taper adapter offset at 6 o'clock, 48 x 19 offset humeral head INDICATIONS: 84-year-old female with right shoulder cuff tear arthropathy with significant superior bony erosion seen on CT scan. The patient was failing conservative management and had severe disability secondary to bilateral patholo gy. We discussed that traditionally this would be treated with reverse total shoulder arthroplasty, but that I have concerns tensioning her deltoid the given the thin bone at the deltoid insertion on the clavicle and acromion. Due to this I recommended that we plan to proceed with a right shoulder hemiarthroplasty with a cuff tear arthropathy head. After discussion the risk, benefits, and alternatives, the patient voluntarily agreed to undergo the aforementioned procedure. DESCRIPTION OF PROCEDURE: Patient was properly identified in the preoperative holding area. Surgical site marking was verified and surgery consent reviewed. The patient was then taken to the operating room and placed in supine position on the OR table. After induction of general anesthesia, preoperative antibiotics were given, all bony prominences were well-padded as the patient was transitioned into beach chair positioning. The right upper extremity was then prepped and draped in usual sterile fashion. Surgical time out was done veri fying correct surgery, side, site, and location to be performed. We then began the procedure by making approximately 12 cm long incision over the deltopectoral interval using a 10 blade. Hemostasis was performed using Bovie electrocautery. We then dissected through the subcutaneous tissues using the Metzenbaums to identify our deltopectoral interval. We then mobilized the cepha lic vein laterally as we opened the interval. We then incised the clavipectoral fascia just lateral to the conjoined tendon and placed our retractor deep to this. We tried to identify the long head of the biceps tendon and did not appreciate it in the bicipital groove. We then began elevating the subscapularis off of its insertion on the humeral head using Bovie electrocautery. With external rotation, we brought the humeral head into view and resected osteophytes as well as released the capsule at the inferior aspect of the head. We released a small portion of the pectoralis tendon off of its insertion on the humerus to allow for better exposure. The rongeur was used to open the humeral head at the apex adjacent to the bicipital groove. At this point we began using the sounding instruments, hand reaming up to a size 10. We then placed our retractors protecting soft tissue and pinned the cutting guide for the humeral head resection. We then performed a the osteotomy removing the top of the humeral head. The cut edge was cleaned up with a rongeur. We broached up to a size 10 x 32 and used the ronguer to clean up our cut. Our trial cuff tear arthropathy humeral head component was placed and the joint was reduced. We noted there to be significant oversized appearance of the humeral head on radiograph. We then dislocated the humerus and removed the trial components. Due to the incomplete purchase of the bone with the stem we elected to go ahead and implant the final stem I. We thoroughly irrigated out the bone. We seated the final stem implant. We then placed a single screw through the humeral stem using the aiming arm and a separate stab incision. We then trialed once more using an offset adapter and the 48mm offset humeral head. We then reduced the humerus once more and ensured appropriate range of motion and stability. The soft tissues were noted to be a tight with a attempts at range motion and cause mild anterior subluxation when taken into abduction. We checked the position of the components under fluoroscopy and found them to be appropriate. We dislocated the shoulder once more and removed the trial adapter in humeral head components. Final components were open. We then thoroughly irrigated out the joint and implanted our offset tapered adapter at the six o'clock position. We then implanted the final head offset also in the six o'clock position. We then irrigated out the joint and reapproximated the subscapularis. We repaired this using the the #2 Ethibond in a Krakw type stitch. We thoroughly irrigated out the wound. We then began loosely repairing the deltopectoral interval using Ethibond. Subcutaneous tissue was approximated using 2-0 Vicryl. The skin was closed using a running subcuticular 3-0 Monocryl with Dermabond applied. An Optifoam dressing was applied once the Dermabond dried. The patient was then placed into a sling, awakened from anesthesia, and taken recovery room in stable condition. Postoperative plan: We will plan to limit the patient's abduction and external rotation while we allow for the subscap to heal. She will do passive range of motion of the shoulder. Assisted forward flexion will be limited to more no more than 60 degrees for the first 4 weeks. DIANNE MEDINA MD Jan 20, 2025 12:35
[2025-01-20] MEDS: GABApentin 100 MG CAPSULE PO SCH (14:00)
[2025-01-20] MEDS: 0.9%NACL 1000ML 1,000 ML IV ONE (14:59)
[2025-01-20] MEDS: ceFAZolin SODIUM 2 GM VIAL IVP SCH (14:59)
--- NOTE | 2025-01-20 18:00 | NUR ---
DR MEDINA LET DR KNOW ABOUT PATIENT'S BP DROPPING AND PATIENT STATING SHE FEELS TIRED. NEW ORDERS FOR CBC. PATIENT CONTINUES ON IV FLUIDS. PLAN OF CARE ON GOING.
[2025-01-20 19:09] LABS: BASOPHILS # (AUTO) 0.05 K/uL (0.00-0.20); BASOPHILS % (AUTO) 0.4 % (0.0-5.0); EOSINOPHILS # (AUTO) 0.03 K/uL (0.00-0.70); EOSINOPHILS % (AUTO) 0.2 % (0.0-8.0); HEMATOCRIT 26.1 % (36-48); IMMATURE GRANULOCYTE ABSOLUTE 0.08 K/uL (0-1); LYMPHOCYTES # (AUTO) 0.8 K/uL (1.0-4.8); LYMPHOCYTES % (AUTO) 6.2 % (21.0-51.0); MEAN CORPUSCULAR HEMOGLOBIN 29.8 pg (27.0-33.0); MONOCYTES # (AUTO) 1.1 K/uL (0.1-1.0); MONOCYTES % (AUTO) 8.5 % (3.0-13.0); NEUTROPHILS # (AUTO) 10.5 K/uL (1.8-7.7); NEUTROPHILS % (AUTO) 84.1 % (40.0-77.0); PLATELET COUNT (AUTO) 271 K/uL (130-400); RED BLOOD CELL COUNT(AUTO) 2.72 MIL/uL (4.00-5.50); RED CELL DISTRIBUTION WIDTH 14.7 % (11.0-15.5); WHITE BLOOD COUNT (AUTO) 12.5 K/uL (4.8-10.8)
[2025-01-20] MEDS: atorVAStatin 10 MG TABLET PO SCH (21:07)
[2025-01-20] MEDS: NYSTatin 15 GM POWDER TP SCH (21:12)
[2025-01-21] MEDS: HYDROcodone/APAP 5/325 1 TAB TABLET PO PRN ×2 (01:34→06:07)
[2025-01-21 03:28] VITALS: BP 136/60; PULSE 103; RESP 19; TEMP 97.7
[2025-01-21 05:31] LABS: HEMATOCRIT 23.9 % (36-48); MEAN CORPUSCULAR HEMOGLOBIN 29.6 pg (27.0-33.0); MEAN CORPUSCULAR HGB CONC 31.8 g/dL (32.0-36.0); RED BLOOD CELL COUNT(AUTO) 2.57 MIL/uL (4.00-5.50); RED CELL DISTRIBUTION WIDTH 14.6 % (11.0-15.5); WHITE BLOOD COUNT (AUTO) 9.1 K/uL (4.8-10.8)
[2025-01-21 05:45] LABS: CREATININE 1.4 mg/dL (0.5-1.0); POTASSIUM 4.2 mmol/L (3.5-5.1)
--- NOTE | 2025-01-21 07:48 | PN ---
Ortho POD #1 This morning patient OOB AAOX3. Reporting moderate pain. VSS, afebrile Laboratory results reviewed. Noted to have a drop in H & H. Patient is asymptomatic at this time. Will address per protocol as needed. Operative findings discussed with patient. Voiding on her own. Yet to pass gas. Dressing intact. arm in sling. can circumduct wrist on command and open and close hand to full composite fist without difficulty. Bilateral SCD sleeves present and on. Enforced IS. Pending PT this morning. Patient eager to go home today. The anticipated D/C goal is HH/OT. Assessment: S/P RT Shoulder Hemiarthoplasty Acute postoperative blood loss anemia Plan: Continue with Dr. Hughes protocol and discharge planning Acute post operative blood loss anemia address per protocol Vitals/Labs Vital Signs Date Time Temp Pulse Resp B/P (MAP) Pulse Ox O2 Delivery O2 Flow Rate FiO2 01/21/25 03:28 97.7 103 19 136/60 99 Nasal Cannula 01/20/25 20:00 3 32 Laboratory Tests 01/20/25 18:55 01/21/25 05:16 Medications Current Medications Cefazolin Sodium 2 gm STK-MED ONCE .ROUTE Last administered on 01/20/25at 07:50; Start 01/20/25 at 06:21; Stop 01/20/25 at 06:22; Status DC Lactated Ringer's 1,000 ml @ As Directed STK-MED ONCE IV Last administered on 01/20/25at 07:55; Start 01/20/25 at 06:22; Stop 01/20/25 at 06:22; Status DC Ondansetron HCl 4 mg STK-MED ONCE .ROUTE; Start 01/20/25 at 07:09; Stop 01/20/25 at 07:09; Status DC Propofol 200 mg STK-MED ONCE IV; Start 01/20/25 at 07:09; Stop 01/20/25 at 07:10; Status DC Midazolam HCl 2 mg STK-MED ONCE .ROUTE; Start 01/20/25 at 07:09; Stop 01/20/25 at 07:10; Status DC Rocuronium [place] 50 mg STK-MED ONCE .ROUTE; Start 01/20/25 at 07:10; Stop 01/20/25 at 07:10; Status DC Fentanyl Citrate 100 mcg STK-MED ONCE .ROUTE; Start 01/20/25 at 07:10; Stop 01/20/25 at 07:10; Status DC Tranexamic Acid 1,000 mg STK-MED ONCE .ROUTE Last administered on 01/20/25at 08:00; Start 01/20/25 at 07:12; Stop 01/20/25 at 07:12; Status DC Ropivacaine 150 mg STK-MED ONCE .ROUTE; Start 01/20/25 at 07:22; Stop 01/20/25 at 07:24; Status DC Phenylephrine HCl 10 mg STK-MED ONCE IV; Start 01/20/25 at 07:23; Stop 01/20/25 at 07:24; Status DC Sodium Chloride 1,000 ml @ 100 mls/hr Q10H IV Last administered on 01/20/25at 17:31; Start 01/20/25 at 07:30; Stop 01/21/25 at 07:29; Status DC Polyethylene Glycol 17 gm DAILY PO; Start 01/20/25 at 09:00; Stop 02/19/25 at 08:59 Bisacodyl 10 mg DAILY PRN RC; Start 01/23/25 at 07:30; Stop 02/22/25 at 07:29 Multivitamins/Iron 1 tab DAILY PRN PO; Start 01/20/25 at 07:30; Stop 02/19/25 at 07:29 Ondansetron HCl 4 mg Q6H PRN IVP; Start 01/20/25 at 07:30; Stop 02/19/25 at 07:29 Calcium Carbonate 500 mg Q12H PRN PO; Start 01/20/25 at 07:30; Stop 02/19/25 at 07:29 Cefazolin Sodium 2 gm Q8H IVP Last administered on 01/20/25at 21:06; Start 01/20/25 at 12:30; Stop 01/20/25 at 20:31; Status DC Cyclobenzaprine HCl 5 mg Q8H PRN PO Last administered on 01/20/25at 11:15; Start 01/20/25 at 07:30; Stop 02/19/25 at 07:29 Docusate Sodium 100 mg BID PO Last administered on 01/20/25at 21:07; Start 01/20/25 at 09:00; Stop 02/19/25 at 08:59 Ketorolac Tromethamine 15 mg Q8H IV; Start 01/20/25 at 07:30; Stop 01/20/25 at 07:43; Status DC Potassium Chloride 100 ml @ 100 mls/hr AD PRN IV; Start 01/20/25 at 07:30; Stop 02/19/25 at 07:29 Potassium Chloride 20 meq AD PRN PO; Start 01/20/25 at 07:30; Stop 02/19/25 at 07:29 Potassium Chloride 20 meq AD PRN PO; Start 01/20/25 at 07:30; Stop 02/19/25 at 07:29 Tramadol HCl 50 mg Q6H PRN PO; Start 01/20/25 at 07:30; Stop 01/25/25 at 07:29 Acetaminophen/ Hydrocodone Bitart Q4H PRN PO; Start 01/20/25 at 07:30; Stop 01/20/25 at 07:45; Status DC Furosemide 20 mg BID PO Last administered on 01/20/25at 21:07; Start 01/20/25 at 09:00; Stop 02/19/25 at 08:59 Home Med (Calcium Carbonate/ Vitamin... BID PO; Start 01/20/25 at 09:00; Stop 02/19/25 at 08:59 Vitamin B Complex 5,000 mcg DAILY PO; Start 01/20/25 at 09:00; Stop 02/19/25 at 08:59 Atorvastatin Calcium 5 mg HS PO Last administered on 01/20/25at 21:07; Start 01/20/25 at 21:00; Stop 02/19/25 at 20:59 Multivitamins Therapeutic 1 tab DAILY PO; Start 01/20/25 at 09:00; Stop 02/19/25 at 08:59 Pantoprazole Sodium 40 mg DAILY PO; Start 01/20/25 at 09:00; Stop 02/19/25 at 08:59 Pramipexole Dihydrochloride 0.5 mg BID PO Last administered on 01/20/25at 21:07; Start 01/20/25 at 09:00; Stop 02/19/25 at 08:59 Home Med ([Olmesartan] 5 MG) DAILY PO; Start 01/20/25 at 09:00; Stop 02/19/25 at 08:59 Dexamethasone Sodium Phosphate 10 mg STK-MED ONCE .ROUTE; Start 01/20/25 at 07:40; Stop 01/20/25 at 07:40; Status DC Acetaminophen/ Hydrocodone Bitart 1 tab Q4H PRN PO Last administered on 01/21/25at 01:34; Start 01/20/25 at 08:00; Stop 01/25/25 at 07:59 Acetaminophen/ Hydrocodone Bitart 2 tab Q4H PRN PO Last administered on 01/21/25at 06:07; Start 01/20/25 at 08:00; Stop 01/25/25 at 07:59 Ondansetron HCl 4 mg STK-MED ONCE .ROUTE; Start 01/20/25 at 09:35; Stop 01/20/25 at 09:36; Status DC Neostigmine Methylsulfate 10 mg STK-MED ONCE IV; Start 01/20/25 at 09:58; Stop 01/20/25 at 09:59; Status DC Fentanyl Citrate 100 mcg STK-MED ONCE .ROUTE; Start 01/20/25 at 10:00; Stop 01/20/25 at 10:00; Status DC Hydralazine HCl 20 mg STK-MED ONCE .ROUTE Last administered on 01/20/25at 10:55; Start 01/20/25 at 10:44; Stop 01/20/25 at 10:44; Status DC Labetalol HCl 20 mg STK-MED ONCE IV Last administered on 01/20/25at 10:47; Start 01/20/25 at 10:44; Stop 01/20/25 at 10:44; Status DC Ropivacaine 150 mg STK-MED ONCE .ROUTE; Start 01/20/25 at 10:48; Stop 01/20/25 at 10:49; Status DC Lidocaine/ Epinephrine 20 ml STK-MED ONCE IJ; Start 01/20/25 at 10:48; Stop 01/20/25 at 10:49; Status DC Morphine Sulfate 2 mg STK-MED ONCE .ROUTE Last administered on 01/20/25at 11:05; Start 01/20/25 at 11:02; Stop 01/20/25 at 11:03; Status DC Cyclobenzaprine HCl 10 mg STK-MED ONCE .ROUTE; Start 01/20/25 at 11:10; Stop 01/20/25 at 11:10; Status DC Gabapentin 100 mg STK-MED ONCE .ROUTE Last administered on 01/20/25at 11:15; Start 01/20/25 at 11:10; Stop 01/20/25 at 11:10; Status DC Hydromorphone HCl 1 mg STK-MED ONCE .ROUTE Last administered on 01/20/25at 11:30; Start 01/20/25 at 11:10; Stop 01/20/25 at 11:10; Status DC Sodium Chloride 1,000 ml @ As Directed STK-MED ONCE IV Last administered on 01/20/25at 14:59; Start 01/20/25 at 11:56; Stop 01/20/25 at 11:57; Status DC Gabapentin 100 mg TID PO Last administered on 01/20/25at 21:08; Start 01/20/25 at 14:00; Stop 02/19/25 at 13:59 Nystatin 1 APPLICATION BID TP Last administered on 01/20/25at 21:12; Start 01/20/25 at 21:00; Stop 02/19/25 at 20:59 TIFFANY MERRITT [employer] Jan 21, 2025 07:47
[2025-01-21] MEDS: traMADol HCL 50 MG TABLET PO PRN (08:08)
[2025-01-21 08:15] VITALS: BP 139/60; PULSE 91; RESP 18; TEMP 98.2
[2025-01-21 08:22] VITALS: O2SAT 98
--- NOTE | 2025-01-21 11:45 | NUR ---
CM NOTE/[facility] CM spoke to patient, spouse, and daughter at bedside regarding d/c planning. Patient reports she is independent with ADL's. Denies having any home services or DME. Patient and spouse report they have discussed home health services at discharge. CM offered in [employer]. Obtained [facility] for [facility] home health. CM to fax referral and follow up. Patient voiced she feels safe to return home today if discharged. Daughter reports she will be staying with patient to assist with ADL's for the next 1-2 months. Addendum: 01/21/25 at 1337 by CORTES LANG CM Amended: Links added.
[2025-01-21 12:11] VITALS: BP 106/42; PULSE 84; RESP 18; TEMP 97.5
--- NOTE | 2025-01-21 13:37 | NUR ---
CM NOTE/[facility] ACCEPTED CM spoke to Chantal with [facility]. States referral has been received and is accepting patient. CM notified Chantal that patient is a potential discharge for today. CM to updated primary nurse with acceptance. Addendum: 01/21/25 at 1339 by CORTES LANG CM Amended: Links added.
[2025-01-21] MEDS ORDERED: HYDR-4060 PO (14:00)
[2025-01-21] MEDS ORDERED: DOCU-116 PO (14:00)
[2025-01-21] MEDS ORDERED: CYCL-309 PO (14:00)
--- NOTE | 2025-01-21 15:12 | NUR ---
Discharge Patient been discharge home with [facility], all discharge instructions given to patient, all questions answered, no concerns at this time. DISCHARGE Patient been discharge home with [facility] health, all questions answered, no concerns at this time, all questions answered at this time, report called in to Jessika MOULTON
[2025-01-23] MEDS ORDERED: BisaCODYL 10 MG SUPP.RECT RC PRN (07:30)
== END 2025-01-21 15:50 | disposition home or self-care (01) ==
LOC: DAH 05:44 → DAHIP 05:45 → 4DH 12:00
PROVIDERS: ADMIT Student in an Organized Health Care Education/Training Program; ATTEND Student in an Organized Health Care Education/Training Program
DX: M19.011 Primary osteoarthritis, right shoulder (principal); G89.18 Other acute postprocedural pain; E78.00 Pure hypercholesterolemia, unspecified; Z98.890 Other specified postprocedural states; Z79.899 Other long term (current) drug therapy; Z90.710 Acquired absence of both cervix and uterus; Z86.2 Personal history of diseases of the blood and blood-forming organs and certain disorders involving the immune mechanism
CPT/HCPCS: 82040; 80048 ×3; 85025 ×2; 85610; 85730; 84134; 86140; 36415 ×3; 87641; 64415; 23470; 96365; 96366; 96375; 86850; 86900; 86901; 86923; 73020; 73030; 97161; 97116 ×3; 93005; 85027; 97530 ×4; C1776 ×3; C1713 ×2; G0378 ×30; A4663; J7030 ×2; J7120; J3010 ×2; J1171; J3490 ×3; J1100; J2270; J0360; J2704; J2405 ×2; J2710; J2795 ×2; J2371; J0690 ×3; A4649; A4930; A6254; A4215; A4223 ×2; A4213; A4222; A4221; A4216; A4600; J2250